=== PATIENT | female | born 1995 ===

== ENCOUNTER → 2017-05-31 | Outpatient (CLI) | payer OTHER ==
[~2017-05-31] MED LIST: ATEN-65 PO; LEVO1TBD8 PO
[2017-05-31 10:49] LABS: PLATELET COUNT, AUTOMATED 363 K/uL (150-450)
== END ==
LOC: LAB 10:33
PROVIDERS: ATTEND Nurse Practitioner Family
DX: E83.52 Hypercalcemia (principal)
CPT/HCPCS: 36415; 82040; 82247; 82306; 82310; 82374; 82435; 82565; 82947; 83970; 84075; 84132; 84155; 84295; 84439; 84443; 84450; 84460; 84480; 84520; 85025

== ENCOUNTER → 2017-06-03 | Outpatient (CLI) | payer OTHER | LOC: LAB 17:01 | PROVIDERS: ATTEND Nurse Practitioner Family | DX: E83.52 Hypercalcemia (principal); R94.6 Abnormal results of thyroid function studies | CPT/HCPCS: 36415; 82310; 82652; 83519; 83970; 84445; 86376; 86800 ==

== ENCOUNTER → 2017-06-21 | Outpatient (CLI) | payer OTHER | LOC: LAB 08:08 | PROVIDERS: ATTEND Nurse Practitioner Family | DX: R94.6 Abnormal results of thyroid function studies (principal); E05.90 Thyrotoxicosis, unspecified without thyrotoxic crisis or storm | CPT/HCPCS: 36415; 83519; 84439; 84443; 84480 ==

== ENCOUNTER 2017-06-24 00:56 | Outpatient (RCR) | payer OTHER ==
--- NOTE | 2017-06-25 17:23 | RADIOLOGY IMAGING REPORT ---
[place] [facility] [place] Mallory Kennedy : 1995 MR: [id number] V: [id number] EXAM DATE: ORDERING PHYSICIAN: OSMANY NORTH TECHNOLOGIST: Location: [facility] - [place] Patient: Mallory Kennedy : 1995 Visit/Account:[id number] Date of Sevice: 06/24/2017 THYROID IMAGE/UPTAKE MULTIPLE HISTORY: low tsh, hyperthyroid TECHNIQUE: 36.4 microcuries I-123 were administered orally. Radioiodine uptake values were calculate d at 24 hours following tracer administration. Gamma camera images were obtained of the neck in vario us orientations. COMPARISON: None FINDINGS: Thyroid radioiodine uptake at 24 hours is 26.6% (normal range 10-30%). Size and shape: Asymmetric prominence of the right lobe. Morphology otherwise unremarkable. Homogeneity: Slightly increased right relative to left uptake, otherwise homogeneous within each lobe . Nodules: Equivocal "warm" nodule inferior right lobe. IMPRESSION: 1. Normal 24-hour radioiodine uptake. 2. Asymmetric prominence of and increased uptake by the right thyroid lobe where there is an equivoc al "warm" nodule inferior without gross suppression of the remaining gland. Report Dictated By: Jeremiah Henson MD at 06/25/2017 5:14 PM Report E-Signed By: Jeremiah Henson MD at 06/25/2017 5:18 PM WSN:[id number]
== END 2017-06-24 18:00 | disposition home or self-care (01) ==
LOC: NUC 00:56 → EDSTATUS 15:10 → NUC 18:00
PROVIDERS: ATTEND Nurse Practitioner Family
DX: R94.6 Abnormal results of thyroid function studies (principal)
CPT/HCPCS: 78014; A9516

== ENCOUNTER → 2017-08-19 | Outpatient (CLI) | payer OTHER ==
[~2017-08-19] MED LIST changes: +ETHI1TAB3 PO; +FLUO10TA24 PO
--- NOTE | 2017-08-19 11:13 | RADIOLOGY IMAGING REPORT ---
FACILITY: [facility] PATIENT NAME: Mallory Kennedy : 1995 MR: [id number] V: [id number] EXAM DATE: ORDERING PHYSICIAN: VANESSA DURBIN TECHNOLOGIST: Location: [facility] [place] Patient: Mallory Kennedy : 1995 Visit/Account:[id number] Date of Sevice: 08/19/2017 THYROID HISTORY: Abnormal nuclear medicine thyroid study COMPARISON: Thyroid uptake and scan June 25, 2017 FINDINGS: SIZE: Normal. Right lobe: 4.6 x 1.2 x 0.9 cm Left lobe: 2.5 x 0.7 x 0.8 cm Isthmus: 1.3 mm PARENCHYMA: Homogeneous. NODULES: Right lobe: * None discrete. Left lobe: * 1.6 mm cyst mid left lobe Isthmus: * None discrete. VASCULARITY: Within normal limits. ADDITIONAL FINDINGS: None. IMPRESSION: The right lobe appears slightly larger than the left although no discrete nodules identified on the r ight Incidental 1.6 mm cyst mid left lobe REFERENCE: 2015 [place] [employer] Management Guidelines for Adult Patients with Thyroid Nodules and D ifferentiated Thyroid Cancer: The [place] [employer] Guidelines Task Force on Thyroid Nodul es and Differentiated Thyroid Cancer. SONOGRAPHIC PATTERNS: * Benign: Purely cystic nodules (no solid component); estimated risk of malignancy <1 percent; no bi opsy recommended. * Very Low Suspicion: Spongiform or partially cystic nodules without any of the sonographic features described in low, intermediate, or high suspicion patterns; estimated risk of malignancy <3 percent; consider FNA at > 2 cm (Observation without FNA is also a reasonable option). * Low Suspicion: Isoechoic or hyperechoic solid nodule, or partially cystic nodule with eccentric so lid areas, without microcalcification, irregular margin or ETE (extra-thyroidal extension), or taller than wide shape; estimated risk of malignancy 5-10 percent; recommend FNA at >1.5 cm. * Intermediate Suspicion: Hypoechoic solid nodule with smooth margins without microcalcifications, E TE (extra-thyroidal extension), or taller than wide shape; estimated risk of malignancy 10-20 percent ; recommend FNA at > 1 cm. * High Suspicion: Solid hypoechoic nodule or solid hypoechoic component of a partially cystic nodule with one or more of the following features: irregular margins (infiltrative, microlobulated), microc alcifications, taller than wide shape, rim calcifications with small extrusive soft tissue component, evidence of ETE (extra-thyroidal extension); estimated risk of malignancy >70-90 percent; recommend FNA at > 1 cm. NOTES: * Although a sonographically suspicious subcentimeter thyroid nodule without evidence of extrathyroi lorna extension or sonographically suspicious lymph nodes may be observed with close sonographic follow -up rather than pursuing immediate FNA, patient age and preference may modify decision-making. A > 50% interval increase in nodule volume and/or development of new suspicious sonographic features are felt to be a valid reasons for potential re-aspiration of a nodule previously shown to have benig n FNA cytology. Report Dictated By: Sadaf Alvarado MD at 08/19/2017 11:07 AM Report E-Signed By: Sadaf Alvarado MD at 08/19/2017 11:09 AM [id number]
== END ==
LOC: US 01:50
PROVIDERS: ATTEND Internal Medicine
DX: R94.6 Abnormal results of thyroid function studies (principal); E04.1 Nontoxic single thyroid nodule
CPT/HCPCS: 76536

== ENCOUNTER → 2017-09-10 | Outpatient (CLI) | payer OTHER ==
[~2017-09-10] MED LIST changes: +FLUO20TA2 PO
== END ==
LOC: LAB 11:13
PROVIDERS: ATTEND Nurse Practitioner Family
DX: Z51.81 Encounter for therapeutic drug level monitoring (principal); Z79.899 Other long term (current) drug therapy
CPT/HCPCS: 36415; 82310; 82374; 82435; 82565; 82947; 84132; 84295; 84520